=== PATIENT | male | born 1995 | race Caucasian/White ===

== ENCOUNTER 2018-04-25 20:27 | Emergency (ER) | payer BC ==
[~2018-04-25] VITALS: Ht 188 cm; Wt 97.7 kg
[2018-04-25 20:30] VITALS: BP 137/92; TEMP 98.3
[2018-04-25 21:49] VITALS: PULSE 69
== END 2018-04-25 21:50 | disposition home or self-care (01) ==
LOC: COL.ER 20:27
DX: S81.011A Laceration without foreign body, right knee, initial encounter (principal); V23.4XXA Motorcycle driver injured in collision with car, pick-up truck or van in traffic accident, initial encounter